=== PATIENT | male | born 1945 | race Caucasian/White ===

== ENCOUNTER → 2016-07-04 | Outpatient (CLI) | payer OTHER ==
--- NOTE | 2016-07-04 11:18 | DX ---
PA and lateral chest. Clinical History: COUGH Comparison Study: September 23, 2013.. Findings: The lungs are clear. No pleural disease identified. Heart size is normal. Visualized osseous structures appear normal. Impression: Normal chest.
== END ==
LOC: CIMAGING 10:19
PROVIDERS: ATTEND Family Medicine
DX: R05 Cough (principal)
CPT/HCPCS: 71020-PO

== ENCOUNTER 2017-11-30 12:38 | Emergency (ER) | payer OTHER ==
[2017-11-30] MEDS ORDERED: IBUPROFEN 600 MG TAB PO ONE (13:31)
[2017-11-30] MEDS ORDERED: ACETAMINOPHEN 500 MG TAB PO ONE (13:31)
[2017-11-30] MEDS ORDERED: LET GEL TOPICAL 1 EA SYR TP ONE (13:31)
[2017-11-30] MEDS ORDERED: ACETAMINOPHEN 325 MG TAB ONE (14:14)
[2017-11-30] MEDS ORDERED: ACETAMINOPHEN 325 MG TAB PO ONE (14:20)
--- NOTE | 2017-11-30 14:28 | EDPHY ---
H & P Stated Complaint: pain sternum,right clavicle,right shoulder from fall 2 days ago Source: Patient Exam Limitations: No limitations - Personal History Current Tetanus Diphtheria and Acellular Pertussis (TDAP): Yes Tetanus Vaccine Date: 2009 - Medical/Surgical History Hx Asthma: No Hx Chronic Respiratory Disease: No Hx Diabetes: No Hx Cardiac Disease: No Hx Renal Disease: No Hx Cirrhosis: No Hx Alcoholism: No Hx HIV/AIDS: No Hx Splenectomy or Spleen Trauma: No Other PMH: brain timor,HTN,thyroidectomy,ortho surgeries,arthritis,Hep B - Family History Significant Family History: No pertinent family hx - Social History Smoking Status: Never smoked Alcohol Use: None Drug Use: None Time Seen by Provider: 11/30/17 13:17 HPI/ROS: This patient describes a fall 2 days ago and when she injured his right shoulder and upper midline sternal/sternal clavicular area. He is concerned because he describes a 2 week history of unsteadiness on his feet which is a new problem for him. He describes his head"getting front of his feet and not being able catch up with his feet and then falling. He has been having a friend assistant baseball coach when he walks to help steady his balance and explains that 2 nights ago he was walking alone and started to feel the same loss of balance. He tried to make it to large [place] to sit on but is fell head long into the [place] assisting in the injury to his right clavicular region, upper midline sternum and head. He sustained abrasion to his ear from the incident. He believed he had a brief LOC from the incident as well. He reports that he laid on the ground for about 15 min after the head injury and was then able to get back up and walk home where he went directly to bed and slept. However he noticed the next morning that he had headache and difficulty with his thinking. He explains that usual activities that he performs without difficulty such as online card games he was unable to perform due to his difficulty focusing. The over the past 48 hr his thinking has cleared back to baseline mental status and his headache is currently resolved. However he does report that he has had intermittent headache generalized in location for 2 weeks prior to the fall and head injury. This headache is unusual for him. He describes it as mild in intensity. Currently he only has a headache if he coughs. ROS: Constitutional: No recent fevers or chills. He denies fatigue. HEENT: No facial injuries from the fall other than the right earlobe injury Neuro: No vision changes. No focal numbness tingling or weakness. He has not noticed any tremor. Pulmonary: No chest wall pain or shortness of breath Cardiovascular: No lightheadedness. No heart palpitations. No chest pain. No lower extremity swelling. GI: No nausea vomiting or abdominal pain : No complaints new line integumentary: No complaints other than ear abrasion. Endocrine: No polyuria or polydipsia. Complete review of symptoms is otherwise negative. (Terrell West) - Medical/Surgical History PMH: Right acoustic neuroma with craniotomy and resection in 1991 Hypertension Partial thyroidectomy with subsequent normal TSH Benign prostatic hypertrophy (Terrell West) - Physical Exam Exam: Physical exam: Vital signs are normal General: Patient is in no acute distress. HEENT: Is no external evidence of trauma on exam except for abrasion to the right earlobe 2 x 1 cm in size partial-thickness with scabbing no active bleeding. Nose atraumatic. Ears: Clear bilaterally with no hemotympanum. Oropharynx: No dental trauma or malocclusion. No intraoral lacerations. Eyes: Pupils are equal and reactive to light. Extraocular motions are intact. Optic fundi: Clear with no papilledema or hemorrhage. Neck: Trachea is midline with no stridor. The patient has no midline neck tenderness and retains a full range of motion without increase in pain. Lungs: Clear to auscultation bilaterally Cardiac: Regular rate and rhythm no murmur gallop or rub. Chest: The patient has upper sternal tenderness at the sternoclavicular joint on the right side. Abdomen: Soft nontender no organomegaly Back: Nontender Extremities: Atraumatic except for right clavicle/shoulder Right shoulder: Patient has tenderness at the sternoclavicular joint more so than the AC joint. No gross deformity. There is mild bruising no tenderness to the proximal humerus. He has limited range of motion the shoulder due to pain in the clavicle with movement Neuro: GCS of 15. Cranial nerves II through XII intact. Cerebellar exam is normal as judged by symmetric rapid hand movements bilaterally. No pronator drift. No sensory or motor deficits are appreciated. Initial differential diagnosis: Unsteadiness on feet: Hydrocephalus, tumor, intracranial bleed or other intracranial process, cardiac dysrhythmia, metabolic abnormality, Parkinson's disease, other a degenerative disorder, head injury: Concussion, subdural hemorrhage, shoulder injury: Clavicle fracture, sternoclavicular sprain, AC sprain, sternal fracture (Terrell West) Constitutional: Initial Vital Signs Temperature (C) 36.9 C 11/30/17 13:05 Heart Rate 78 11/30/17 13:05 Respiratory Rate 14 11/30/17 13:05 Blood Pressure 119/82 H 11/30/17 13:05 O2 Sat (%) 94 11/30/17 13:05 O2 Delivery Mode Room Air Allergies/Adverse Reactions: morphine Allergy (Verified 11/30/17 13:04) Home Medications: Medication Instructions Recorded Atenolol 11/30/17 Finasteride 11/30/17 Medical Decision Making - Diagnostics Imaging: Discussed imaging studies w/ commercial representative Radiologist (CT head. I also reviewed these films myself), I viewed and interpreted images myself (Plain radiographs) - Diagnostics EKG Interpretation: 12 lead EKG: Performed at 2:44 p.m. Indication dizziness rule out dysrhythmia or other Sinus rhythm at 61 Intervals: Normal throughout [place]: Normal throughout ST segments: Normal throughout overall assessment: Normal EKG (Terrell West) Imaging Results: Imaging Impressions Shoulder X-Ray 11/30/17 13:32 Impression: Negative for fracture. Head CT 11/30/17 13:36 Impression: Post-surgical changes of a right occipital craniectomy with hypodensity in the right cerebellum. This probably is related to old surgery but would recommend correlation with physical examination to exclude acute or subacute cerebellar infarct. Findings and recommendations discussed with TERRELL WEST at 1410 hour, . Sternum X-Ray 11/30/17 13:57 Impression: Sternum negative for fracture. Shoulder x-ray: No clavicle fracture or other fractures by my interpretation Sternal x-rays: Negative for fracture by my interpretation (Terrell West) ED Course/Re-evaluation: Ibuprofen Tylenol for pain with partial relief Ear abrasion is cleaned Labs were delayed due to patient being gone imaging for period of time and then the miss of the 1st IV attempt. Discussion: Patient with episodes to dizziness with 1 the episodes resulting in a fall with concussion a brief LOC 2 days ago. He presents with no focal neuro findings. CT brain shows no acute findings. His blood pressure is on the low side and it is possible that he given normotensive on the low side blood pressure despite not taken Tylenol today he may be having symptomatic hypotension. I counseled them to stop the atenolol. Also, he reports that he was started on the finasteride years ago for an episode of prostatic swelling and has been kept on it since then but has had no prostate symptoms for quite some time. A listed potential side effect of the gastritis dizziness. I encouraged him to stop 1 or both these medications to see if his dizziness resolves. He will also follow up with Neurology. He has 1 hypodensity in the right cerebellum that is felt by the radiologist to be related to his prior craniotomy for acoustic neuroma. I do not think he had an acute stroke. No evidence of intracranial bleed or tumors. I discussed this case with Dr. Woodall at 3:00 p.m. With labs pending. He will follow up with labs and final disposition. (Terrell West) The patient's care is transferred to [facility] at 3:00 p.m[address] With labs pending. CT and imaging have been done previously. Plan is to discharge with discontinuation of his finasteride and follow up with his primary and with Neurology if his lab work is unremarkable. Finasteride has a side effect of dizziness and may also be affecting his blood pressure. Further workup for tumors, normal pressure hydrocephalus, CVA or cardiac etiology will be pursued as an outpatient. This is the plan agreed upon by the patient and Dr. West. 3:50 p.m. the patient is reassured by the lab work. He is eager to go home. We discussed follow-up with his primary and with Neurology. He will stop taking finasteride. He feels safe and does not wish to stay does not wish to have further evaluation. We discussed the differential. He has not had any urinary incontinence. He does not have a headache. He has not had any confusion. (Robb Woodall) Differential Diagnosis: Partial list of the Differential diagnosis considered include but were not limited to; medication reaction, injury, normal pressure hydrocephalus, tumor arrhythmia, TIA, fracture and although unlikely based on the history and physical exam, I also considered infection. (Robb Woodall) - Data Points Laboratory Results: 11/30/17 15:16 POC Sodium 142 mEq/L mEq/L (135-145) POC Potassium 3.9 mEq/L mEq/L (3.3-5.0) POC Chloride 106.0 mEq/L mEq/L (97-110) POC Total CO2 23 mEq/L mEq/L (22-31) POC BUN 15 mg/dL mg/dL (7-23) POC Creatinine 1.1 mg/dL mg/dL (0.7-1.3) POC Glucose 102 mg/dL H mg/dL (70-100) POC Calcium 9.1 mg/dL mg/dL (8.5-10.4) Medications Given: Discontinued Medications Acetaminophen (Tylenol) 1,000 mg PO EDNOW ONE Stop: 11/30/17 13:32 Last Admin: 11/30/17 15:01 Dose: Not Given Acetaminophen (Tylenol) 975 mg PO EDNOW ONE Stop: 11/30/17 14:21 Last Admin: 11/30/17 14:21 Dose: 975 mg Ibuprofen (Motrin) 600 mg PO EDNOW ONE Stop: 11/30/17 13:32 Last Admin: 11/30/17 14:19 Dose: 600 mg Tetracaine/Epinephrine/Lidocaine (Let Gel Topical) 1 ea TP EDNOW ONE Stop: 11/30/17 13:32 Last Admin: 11/30/17 14:18 Dose: 1 ea Point of Care Test Results: CBC CBC Collection Date 11/30/17 CBC Collection Time 14:45 WBC 7 RBC 4.76 HGB 15.6 HCT 45.3 PLT 189 Neut # 4.7 Neut 66.4 LYMPH # 1.7 LYMPH 24.7 Other WBC # 0.6 Other WBC 8.9 MCV 95.2 Chemistry 11/30/17 15:16 POC Sodium 142 mEq/L mEq/L (135-145) POC Potassium 3.9 mEq/L mEq/L (3.3-5.0) POC Chloride 106.0 mEq/L mEq/L (97-110) POC Total CO2 23 mEq/L mEq/L (22-31) POC BUN 15 mg/dL mg/dL (7-23) POC Creatinine 1.1 mg/dL mg/dL (0.7-1.3) POC Glucose 102 mg/dL H mg/dL (70-100) POC Calcium 9.1 mg/dL mg/dL (8.5-10.4) Departure - Departure Disposition: Home, Routine, Self-Care Clinical Impression: Dizziness, Abrasion Concussion Qualifiers: Encounter type: initial encounter Loss of consciousness presence/duration: with LOC of unspecified duration Qualified Code(s): S06.0X9A - Concussion with loss of consciousness of unspecified duration, initial encounter Sternoclavicular (joint) (ligament) sprain Qualifiers: Encounter type: initial encounter Laterality: right Qualified Code(s): S43.61XA - Sprain of right sternoclavicular joint, initial encounter Sternal contusion Qualifiers: Encounter type: initial encounter Qualified Code(s): S20.20XA - Contusion of thorax, unspecified, initial encounter Clinical Impression: (Ruled Out): Sternoclavicular joint pain Condition: Good Instructions: Sprain (ED), Concussion (ED), Dizziness (ED), Ear Abrasion (ED) Additional Instructions: Diagnoses: 1. Dizziness 2. Concussion 3. Ear abrasion 4. Sternoclavicular sprain Plan: Ibuprofen Tylenol for sternoclavicular sprain Consider a sling when your up and about until symptoms improve Clean the ear wound daily with warm soapy water Consider stopping you're finasteride as this can be associated with dizziness, also given your blood pressure currently on the low side consider stopping atenolol. Call your primary care physician for follow-up appointment for recheck after stopping 1 or both medications in 5-[address] Fitch, neurologist arrange follow-up appointment for further evaluation of dizziness. If your shoulder pain is improving significantly over the next 5-7 days with treatment plan, then make appointment to follow up with Dr. Barboza, orthopedics Return emergency department for any significant worsening of her symptoms despite treatment plan. Referrals: Elio Jarrell DO [Primary Care Provider] - As per Instructions Avinash Fitch MD [Medical Doctor] - As per Instructions Patricia Barboza MD [Medical Doctor] - As per Instructions
--- NOTE | 2017-11-30 14:46 | CPEKG ---
Heart Rate: 61 RR Interval: 984 P-R Interval: 148 QRSD Interval: 90 QT Interval: 420 QTC Interval: 423 P [place]: 36 QRS [place]: 3 T Wave [place]: 15 EKG Severity - NORMAL ECG - EKG Impression: SINUS RHYTHM Electronically Signed By: Terrell Sevilla 30-Nov-2017 15:00:27
[2017-11-30 16:15] VITALS: BP 133/98
--- NOTE | 2017-12-03 09:03 | CPEKG ---
Heart Rate: 101 RR Interval: 594 P-R Interval: 132 QRSD Interval: 84 QT Interval: 328 QTC Interval: 426 P [place]: 83 QRS [place]: 86 T Wave [place]: 41 EKG Severity - ABNORMAL ECG - EKG Impression: SINUS TACHYCARDIA EKG Impression: RIGHT ATRIAL ABNORMALITY EKG Impression: BORDERLINE RIGHT AXIS DEVIATION Electronically Signed By: Alan Iverson 07-Dec-2017 16:15:55
== END 2017-11-30 16:13 | disposition home or self-care (01) ==
LOC: CED 12:38
DX: S06.0X9A Concussion with loss of consciousness of unspecified duration, initial encounter (principal); S43.61XA Sprain of right sternoclavicular joint, initial encounter; S20.20XA Contusion of thorax, unspecified, initial encounter; S00.411A Abrasion of right ear, initial encounter; I10 Essential (primary) hypertension; W18.39XA Other fall on same level, initial encounter
CPT/HCPCS: 70450; 71120; 73030; 93005; 99285; A4565; 80048-PO

== ENCOUNTER → 2018-08-29 | Outpatient (CLI) | payer OTHER | LOC: CIMAGING 12:04 | PROVIDERS: ATTEND Family Medicine | DX: M50.31 Other cervical disc degeneration, high cervical region (principal); I65.23 Occlusion and stenosis of bilateral carotid arteries | CPT/HCPCS: 72050-PO ==

== ENCOUNTER → 2018-09-17 | Outpatient (CLI) | payer OTHER | LOC: FIMAGING 12:30 | PROVIDERS: ATTEND Family Medicine | DX: I65.23 Occlusion and stenosis of bilateral carotid arteries (principal) ==

== ENCOUNTER → 2018-10-04 | Outpatient (CLI) | payer OTHER | LOC: EMCIMAGING 15:08 | PROVIDERS: ATTEND Family Medicine | DX: N43.3 Hydrocele, unspecified (principal) | CPT/HCPCS: 76870-PN ==